=== PATIENT | female | born 1980 | race Caucasian/White ===

== ENCOUNTER → 2022-06-25 | Emergency (ER) | payer OTHER ==
[~2022-06-25] VITALS: Ht 160 cm; Wt 61.2 kg
[~2022-06-25] MED LIST: DICLOFENAC SODI75 MG PO; DOXYCYCLINE MO100 M1 PO; PERCOCET 5/3251 TAB PO; POLY119PG PO; SURFAK240 M1 PO; ULTRACET PO
== END | disposition home or self-care (01) ==
LOC: ER 20:49
DX: R10.2 Pelvic and perineal pain (principal)